=== PATIENT | male | born 1970 | race Asian ===

== ENCOUNTER 2019-05-13 11:06 | Day surgery (SDC) | payer OTHER ==
[~2019-05-13 11:06] MED LIST: CEFAZOLIN 2 GM/50 ML (PMX) 50 ML IVPB
[2019-05-13] MEDS: SOD CHLORIDE 0.9% 1,000 ML IV (11:54)
[2019-05-13] MEDS ORDERED: MIDAZOLAM 1 MG/ML 2 ML INJ (13:48)
[2019-05-13] MEDS ORDERED: PROPOFOL 20 ML (13:49)
[2019-05-13] MEDS ORDERED: ONDANSETRON 4 MG INJ (13:49)
[2019-05-13] MEDS ORDERED: KETOROLAC 30 MG INJ (13:49)
[2019-05-13] MEDS ORDERED: CEFAZOLIN 1 GM INJ (13:49)
[2019-05-13] MEDS ORDERED: METOCLOPRAMIDE 10 MG INJ (13:49)
[2019-05-13] MEDS ORDERED: FENTAnyl 50 MCG/ML VIAL (13:52)
[2019-05-13] MEDS ORDERED: LABETALOL HCL 20MG INJ IV (14:00)
[2019-05-13] MEDS ORDERED: OXYCODONE/ACETAMINOPHEN (5/325) TAB PO ×2 (14:00)
[2019-05-13] MEDS ORDERED: MEPERIDINE 25 MG INJ IV (14:00)
[2019-05-13] MEDS ORDERED: HYDROmorphONE 1 MG/5 ML IV SYRINGE IV ×3 (14:00)
[2019-05-13] MEDS ORDERED: ONDANSETRON 4 MG INJ IV (14:00)
[2019-05-13] MEDS ORDERED: DIPHENHYDRAMINE 50 MG INJ IV (14:00)
[2019-05-13] MEDS ORDERED: FENTAnyl 50 MCG/ML VIAL IV ×3 (14:00)
[2019-05-13] MEDS ORDERED: hydrALAzine 20 MG INJ IV (14:00)
[2019-05-13] MEDS ORDERED: KETOROLAC 30 MG INJ IV (14:00)
[2019-05-13] MEDS: BUPIVACAINE 0.25% (MPF) 30 ML INJ (14:23)
[2019-05-13] MEDS ORDERED: HYDROCODONE/APAP (5/325) TAB PO (14:30)
== END 2019-05-13 16:35 | disposition home or self-care (01) ==
LOC: SDS 11:06
DX: L72.0 Epidermal cyst (principal); R22.2 Localized swelling, mass and lump, trunk; E03.9 Hypothyroidism, unspecified; I10 Essential (primary) hypertension
CPT/HCPCS: 14000; 71045; 88307; 93005